=== PATIENT | male | born 1945 | race Caucasian/White ===

== ENCOUNTER 2023-11-05 12:04 | Emergency (ER) | payer MEDICARE, BC ==
[~2023-11-05] VITALS: Ht 170.2 cm; Wt 65.8 kg
[~2023-11-05 12:04] MED LIST: ASPI-1169 PO; LACT1CAP69 PO; LEVO50TA8 PO
[2023-11-05] MEDS ORDERED: MECLIZINE HCL 25 MG TABLET ONE (12:55)
[2023-11-05] MEDS: IV NS 0.9% 1,000 ML BAG IV ONE (12:59)
[2023-11-05] MEDS: MECLIZINE HCL 12.5 MG TABLET PO ONE (13:00)
[2023-11-05 13:09] LABS: BASOPHILS % (AUTO) 0.6 % (0.0-2.0); EOSINOPHILS # (AUTO) 0.1 K/uL (0.0-0.7); EOSINOPHILS % (AUTO) 2.7 % (0.0-6.0); HEMATOCRIT 34 % (39-51); HEMOGLOBIN 11.8 g/dL (13.5-17.5); LYMPHOCYTES # (AUTO) 0.7 K/uL (0.8-4.8); LYMPHOCYTES % (AUTO) 14.3 % (20.0-44.0); MEAN CORPUSCULAR HEMOGLOBIN 33 PG (26.0-33.0); MEAN CORPUSCULAR HGB CONC 34 g/dl (31.0-36.0); MEAN CORPUSCULAR VOLUME 97 fL (80-96); MONOCYTES # (AUTO) 0.4 K/uL (0.1-1.30); MONOCYTES % (AUTO) 8.2 % (2.0-12.0); NEUTROPHILS # (AUTO) 3.4 K/uL (1.8-8.9); NEUTROPHILS % (AUTO) 74.2 % (43.0-81.0); PLATELET COUNT (AUTO) 239 K/uL (150-450); RED BLOOD CELL COUNT(AUTO) 3.54 MIL/uL (4.5-6.0); RED CELL DISTRIBUTION WIDTH 13.6 % (11.5-15.0); WHITE BLOOD COUNT (AUTO) 4.6 K/uL (4.3-11.0)
[2023-11-05 13:20] LABS: CALCIUM, SERUM 9.1 mg/dL (8.5-10.1); CARBON DIOXIDE 30 mmol/L (21-32); CHLORIDE 97 mmol/L (98-107); CREATININE 1.3 mg/dL (0.6-1.3); GLUCOSE 103 mg/dL (74-106); SODIUM SERUM 133 mmol/L (136-145); UREA NITROGEN, BLOOD 19 mg/dL (7-18)
[2023-11-05 13:24] LABS: ALANINE AMINOTRANSFERASE 33 U/L (12-78); ALBUMIN 3.7 g/dL (3.4-5.0); ALKALINE PHOSPHATASE 73 U/L (46-116); ASPARTATE AMINOTRANSFERASE 40 U/L (15-37); BILIRUBIN,DIRECT 0.2 mg/dL (0.0-0.2); BILIRUBIN,TOTAL 0.7 mg/dL (0.2-1.0); TOTAL PROTEIN, SERUM 6.3 g/dL (6.4-8.2)
[2023-11-05 13:27] LABS: INR 1.13 (0.91-1.10); PARTIAL THROMBOPLASTIN TIME 23.1 SEC (24.3-34.3); PROTHROMBIN TIME 11.9 SECS (9.2-11.1)
[2023-11-05] MEDS ORDERED: MECL-159 PO (14:28)
[2023-11-05] MEDS ORDERED: LORAZEPAM INJ 2 MG/ML VIAL ONE (14:34)
[2023-11-05] MEDS: LORAZEPAM INJ 2 MG/ML VIAL IV ONE (14:41)
[2023-11-05 15:07] LABS: APPEARANCE,URINE CLEAR (CLEAR); BILIRUBIN,URINE NEGATIVE (NEGATIVE); BLOOD, URINE NEGATIVE Ery/uL (NEGATIVE); COLOR,URINE YELLOW (YELLOW); KETONES,URINE NEGATIVE (NEGATIVE); LEUKOCYTE ESTERASE ,URINE NEGATIVE (NEGATIVE); NITRITE, URINE NEGATIVE (NEGATIVE); PH,URINE 7.5 (5.0-8.0); PROTEIN,URINE NEGATIVE (NEGATIVE); UGLUCOSE NEGATIVE (NEGATIVE); UROBILINOGEN,URINE 0.2 EU/dL (0.2)
[2023-11-05 15:27] VITALS: BP 134/81; TEMP 98.2; O2SAT 100
== END 2023-11-05 15:28 | disposition home or self-care (01) ==
LOC: ER 12:08
DX: R42 Dizziness and giddiness (principal); E03.9 Hypothyroidism, unspecified; Z88.8 Allergy status to other drugs, medicaments and biological substances
CPT/HCPCS: 99285; 96374; 70450; 71045; 96361; 93005; 85025; 80048; 80076; 81003; 36415; 84484; 85730; 82962; J8597; J2060; J7030